=== PATIENT | female | born 1980 | race Caucasian/White ===

== ENCOUNTER 2016-06-09 09:19 | Emergency (ER) | payer OTHER, SELFPAY ==
[~2016-06-09] VITALS: Ht 152.4 cm; Wt 81.6 kg
[~2016-06-09 09:19] MED LIST: ALPRPOW4 PO; AMBI10TA PO; AMBI5TAB PO; AUGM875T27 PO; AVEL1TAB PO; AZIT250T3 PO; BACITAB3 PO; BUSP10TA PO; CALDESENE TOP; CLON1TAB PO; DELTASONE PO; DIAZ5TAB PO; DOXE25CA PO; DRISDOL PO; DULO30CA PO; ESTR625TA PO; FLUO20CA8 PO; FLUO20CA9 PO; FLUO40CA PO; FLUOXETINE PO; KEFL500C7 PO; KLON0.5T PO; KLON1TAB PO; LEVA750T PO; LEVO137T2 PO; LEVO150T7 PO; LEVOTHYROXINE PO; LITH45TASA PO; METH-107 PO; MINI2CAP PO; PERC5TAB6 PO; PRAZ1CAP PO; PRAZOSIN PO; PRED5TA PO; PREM0.45 PO; PROT1TAB2 PO; PROZ10CA7 PO; PROZ20CA11 PO; PROZ40CA PO; QUET1TAB8 PO; SERO50TA PO; SYNT150T PO; TRAZ50TA4 PO; TRAZO50TA PO; TYLE325T5 PO; VIST25CA PO; XANA0.5T PO; XANA1TAB2 PO; ZITH500T PO; ZOFR20TA PO; ZOFR4TAB3 PO; ZOLO50TA PO; ZYPR7.5T10 PO; [UNRECOGNIZED DRUG - OTHER] PO; [UNRECOGNIZED DRUG - OTHER] PO
[2016-06-09] MEDS ORDERED: ALPRAZolam 0.25 MG TAB PO ONE (09:45)
--- NOTE | 2016-06-09 11:03 | REP ---
CT Head without contrast HISTORY: Trauma COMPARISON: 11/11/2015 There is no intraparenchymal hemorrhage, acute infarct, mass or midline shift. The ventricular system is normal in appearance. There is no extra cerebral collection. There is no fracture. The visualized sinuses are clear. IMPRESSION: There is no intracranial lesion. Signed by Jaiden Guidry MD 06/09/2016 10:54 A
--- NOTE | 2016-06-09 11:07 | REP ---
CT cervical spine without contrast HISTORY: Trauma COMPARISON: 11/13/2014 There is no acute fracture or subluxation. There is no definite disc bulge or herniation. The spinal canal and neural foramina are patent. The intervertebral discs and vertebral bodies are normal in height. IMPRESSION: There is no acute fracture or subluxation. Signed by Jaiden Guidry MD 06/09/2016 10:58 A
[2016-06-09] MEDS ORDERED: PERCOCET 5MG/325MG TAB PO ONE (11:15)
--- NOTE | 2016-06-09 11:15 | REP ---
Right shoulder series: Three views. History: Trauma. Findings: The right glenohumeral and acromioclavicular joints are normally aligned. There is no evidence of fracture or subluxation. Periarticular soft tissues are unremarkable. No change when compared with the August 12, 2014 prior radiographic study of the humerus. Impression: No fracture or other traumatic abnormality noted. Signed by Corby Jones MD 06/09/2016 03:19 P
--- NOTE | 2016-06-09 11:18 | REP ---
Right hand series: Four views. History: Trauma. Findings: Four views right hand show overall normal mineralization. Bones, joints, and soft tissues are otherwise unremarkable. No fracture or subluxation is seen. Impression: No fracture noted. Signed by Corby Jones MD 06/09/2016 03:19 P
--- NOTE | 2016-06-09 11:19 | REP ---
Right TIB-fib series: Four views. History: Trauma. Comparison study November 11, 2015. Findings: There is a stable benign appearing low density lesion in the proximal fibula in the janelle metaphyseal zone measuring approximately 2.3 cm in greatest diameter. This is felt to be unchanged from November 11, 2015. Bones, joints, and soft tissues are otherwise radiographically unremarkable. No traumatic abnormality is seen. Impression: 2 cm stable radiolucency in the proximal fibula unchanged from November 11, 2015. No traumatic abnormality seen. Signed by Corby Jones MD 06/09/2016 03:20 P
[2016-06-09 13:36] VITALS: BP 120/80
[2016-06-09 13:38] VITALS: O2SAT 95
== END 2016-06-09 13:40 | disposition home or self-care (01) ==
LOC: M ED 13:09
DX: S60.221A Contusion of right hand, initial encounter (principal); S00.93XA Contusion of unspecified part of head, initial encounter; S80.11XA Contusion of right lower leg, initial encounter; W10.8XXA Fall (on) (from) other stairs and steps, initial encounter; Y92.89 Other specified places as the place of occurrence of the external cause; Y93.01 Activity, walking, marching and hiking; Y99.9 Unspecified external cause status

== ENCOUNTER 2016-10-20 09:03 | Emergency (ER) | payer OTHER ==
[~2016-10-20] VITALS: Ht 149.9 cm; Wt 90.9 kg
[~2016-10-20 09:03] MED LIST changes: -AUGM875T27 PO; +AUGM875T28 PO; -AVEL1TAB PO; +AVEL1TAB3 PO; +AZIT-12 PO; -AZIT250T3 PO; +BACITAB PO; -BACITAB3 PO; +FLUO20CA19 PO; -FLUO20CA9 PO; +KEFL500C17 PO; -KEFL500C7 PO; -LEVA750T PO; +LEVA750T7 PO; -METH-107 PO; +METH1TAB40 PO; +PERC5TAB12 PO; -PERC5TAB6 PO; +TRAZ50TA11 PO; -TRAZ50TA4 PO; +ZYPR1TAB2 PO; -ZYPR7.5T10 PO
[2016-10-20] MEDS ORDERED: VITA-122 (09:17)
[2016-10-20] MEDS ORDERED: SYNT75TA (09:17)
[2016-10-20] MEDS ORDERED: CLON0.5T (09:17)
[2016-10-20] MEDS ORDERED: CLON0.2T (09:17)
[2016-10-20] MEDS ORDERED: ARMO1TAB (09:17)
[2016-10-20] MEDS ORDERED: TRAZ-136 (09:17)
[2016-10-20] MEDS ORDERED: LAMO100T (09:17)
[2016-10-20] MEDS ORDERED: IPRATROPIUM 0.5MG/ALBUTEROL 2.5MG INH SOL UD 3ML (DUONEB)(J7620) NEB ONE (09:45)
[2016-10-20 10:18] LABS: BASO # 0.1 K/mm3 (0.0-0.2); BASO % 0.8 % (0.0-1.0); EOS # 0.2 K/mm3 (0.0-0.50); EOS % 2.9 % (0.0-3.0); LARGE UNSTAINED CELL # 0.1 K/mm3 (0.0-0.4); LARGE UNSTAINED CELL % 1.6 % (0.0-4.0); LYMPH % 34.7 % (24.0-44.0); MEAN CORPUSCULAR HGB CONC 32.4 g/dl (32.0-36.5); MEAN CORPUSCULAR VOLUME 89.4 fl (80.0-96.0); MONO # 0.3 K/mm3 (0.0-0.8); MONO % 4.2 % (0.0-5.0); NEUTROPHILS # 4.6 K/mm3 (1.8-7.7); NEUTROPHILS % 55.9 % (36.0-66.0); PLATELET COUNT, AUTOMATED 322 k/mm3 (150-450); RED CELL DISTRIBUTION WIDTH 13.4 % (11.5-14.5); WHITE BLOOD COUNT 8.2 K/mm3 (4.0-10.0)
[2016-10-20 10:25] LABS: ALBUMIN/GLOBULIN RATIO 1.11 (1.00-1.93); ALKALINE PHOSPHATASE 86 U/L (45-117); ALT/SGPT 37 U/L (12-78); ANION GAP 10 MEQ/L (8-16); AST/SGOT 15 U/L (15-37); BILIRUBIN,TOTAL 0.2 MG/DL (0.2-1.0); BLOOD UREA NITROGEN 4 MG/DL (7-18); CALCIUM LEVEL 8.9 MG/DL (8.5-10.1); CARBON DIOXIDE LEVEL 24 MEQ/L (21-32); CHLORIDE LEVEL 107 MEQ/L (98-107); GLOMERULAR FILTRATION RATE > 60.0 (>60); GLUCOSE, FASTING 101 MG/DL (70-105); POTASSIUM SERUM 3.7 MEQ/L (3.5-5.1); SODIUM LEVEL 141 MEQ/L (136-145); TOTAL PROTEIN 7.6 GM/DL (6.4-8.2)
--- NOTE | 2016-10-20 10:49 | REP ---
Chest x-ray: Two views. History: Shortness of breath and chest pain. Comparison study: February 05, 2015. Findings: The lungs are well inflated and clear. Pleural angles are sharp. Cardiomediastinal silhouette is unremarkable. Pulmonary vasculature is not increased. No bony abnormality is seen. There are surgical clips in the right upper quadrant of the abdomen and in the left axillary region as before. Impression: No active disease. Signed by Corby Jones MD 10/20/2016 04:02 P
[2016-10-20 11:06] VITALS: BP 110/70
[2016-10-20] MEDS ORDERED: AUGM875T28 PO (11:07)
[2016-10-20] MEDS ORDERED: CLAR1TAB2 PO (11:07)
[2016-10-20] MEDS ORDERED: PRED20TA PO (11:07)
[2016-10-20] MEDS ORDERED: ALBU17IN INH (11:07)
[2016-10-20] MEDS ORDERED: predniSONE 20 MG TAB PO ONE (11:15)
[2016-10-20] MEDS ORDERED: AUGMENTIN 875 MG TAB PO ONE (11:15)
--- NOTE | 2016-10-20 13:44 | ECGEPIP ---
Stationary ECG Study [facility] - ED Test Date: 2016-10-20 Pat Name: SHARA CLARK Department: Room: - Gender: F [employer] Professor: lauryn : 1980 Requested By: Oumou Holley PA-C Order Number: [id number] Reading MD: Elizabeth Zavala Measurements Intervals [place] Rate: 92 P: 21 MT: 121 QRS: 50 QRSD: 85 T: 28 QT: 360 QTc: 446 Interpretive Statements SINUS RHYTHM NSTTW ABNORMALITY SIMILAR 01/29/15 Electronically Signed On 10-20-2016 13:43:57 EDT by Elizabeth Zavala
== END 2016-10-20 11:18 | disposition home or self-care (01) ==
LOC: M ED 09:03
DX: J01.90 Acute sinusitis, unspecified (principal); J20.9 Acute bronchitis, unspecified; G43.909 Migraine, unspecified, not intractable, without status migrainosus; M26.609 Unspecified temporomandibular joint disorder, unspecified side; N93.9 Abnormal uterine and vaginal bleeding, unspecified; N83.299 Other ovarian cyst, unspecified side; E03.9 Hypothyroidism, unspecified; F41.9 Anxiety disorder, unspecified; M54.9 Dorsalgia, unspecified; F32.9 Major depressive disorder, single episode, unspecified; F43.10 Post-traumatic stress disorder, unspecified; F44.81 Dissociative identity disorder; Z79.899 Other long term (current) drug therapy; Z88.6 Allergy status to analgesic agent; Z88.8 Allergy status to other drugs, medicaments and biological substances

== ENCOUNTER 2016-11-16 16:48 | Emergency (ER) | payer OTHER ==
[~2016-11-16] VITALS: Ht 152.4 cm; Wt 95.5 kg
[~2016-11-16 16:48] MED LIST changes: +ALBU17IN INH; +ARMO1TAB; +CLAR1TAB2 PO; +CLON0.2T; +CLON0.5T; +LAMO100T; +PRED20TA PO; +SYNT75TA; +TRAZ-136; +VITA-122
[2016-11-16] MEDS ORDERED: NS 1,000 ML IV ONE (17:45)
[2016-11-16 17:57] LABS: BASO # 0.1 K/mm3 (0.0-0.2); EOS # 0.2 K/mm3 (0.0-0.50); EOS % 2.7 % (0.0-3.0); LARGE UNSTAINED CELL # 0.2 K/mm3 (0.0-0.4); LYMPH # 3.1 K/mm3 (1.5-4.5); MEAN CORPUSCULAR HEMOGLOBIN 29.2 pg (27.0-33.0); MEAN CORPUSCULAR VOLUME 91.3 fl (80.0-96.0); MONO # 0.4 K/mm3 (0.0-0.8); MONO % 4.9 % (0.0-5.0); NEUTROPHILS % 56.4 % (36.0-66.0); PLATELET COUNT, AUTOMATED 363 k/mm3 (150-450); RED CELL DISTRIBUTION WIDTH 13.9 % (11.5-14.5); WHITE BLOOD COUNT 8.8 K/mm3 (4.0-10.0)
[2016-11-16 17:59] LABS: CONTROL LINE HCG INT CTR LINE PRESENT
[2016-11-16 18:10] LABS: ALBUMIN 3.6 GM/DL (3.2-5.2); ALBUMIN/GLOBULIN RATIO 1.16 (1.00-1.93); ALKALINE PHOSPHATASE 74 U/L (45-117); ALT/SGPT 31 U/L (12-78); ANION GAP 15 MEQ/L (8-16); AST/SGOT 14 U/L (15-37); BILIRUBIN,DIRECT < 0.1 MG/DL (0.0-0.2); BILIRUBIN,TOTAL 0.3 MG/DL (0.2-1.0); BLOOD UREA NITROGEN 9 MG/DL (7-18); CALCIUM LEVEL 8.5 MG/DL (8.5-10.1); CARBON DIOXIDE LEVEL 20 MEQ/L (21-32); CHLORIDE LEVEL 108 MEQ/L (98-107); CREATININE FOR GFR 0.66 MG/DL (0.55-1.02); GLOMERULAR FILTRATION RATE > 60.0 (>60); GLUCOSE, FASTING 118 MG/DL (70-105); POTASSIUM SERUM 3.7 MEQ/L (3.5-5.1); SODIUM LEVEL 143 MEQ/L (136-145); TOTAL PROTEIN 6.7 GM/DL (6.4-8.2)
[2016-11-16] MEDS ORDERED: METOCLOPRAMIDE INJ 10MG/2ML VIAL (J2765) IV ONE (20:00)
[2016-11-16 20:08] LABS: MICROSCOPIC INDICATED? MAN YES (NO)
[2016-11-16 20:19] LABS: MICROSCOPIC EXAM PERFORMED
[2016-11-16 20:20] LABS: BACTERIA, URINE SMALL AMOUNT; HYALINE CAST, URINE NONE SEEN /lpf (0-1); RBC, URINE 0-1 /hpf (0-3); SQUAMOUS EPITHELIAL CELL URINE MOD AMOUNT /hpf (SMALL AMT)
[2016-11-16 20:31] LABS: METHADONE URINE NEGATIVE (NEGATIVE)
--- NOTE | 2016-11-16 20:41 | ECGEPIP ---
Stationary ECG Study [facility] - ED Test Date: 2016-11-16 Pat Name: SHARA CLARK Department: Room: - Gender: F [employer]: JUS : 1980 Requested By: EUFEMIA LAGOS Order Number: [id number] Reading MD: Elizabeth Zavala Measurements Intervals [place] Rate: 90 P: 15 LA: 123 QRS: 29 QRSD: 90 T: 4 QT: 377 QTc: 462 Interpretive Statements SINUS RHYTHM NSTTW ABNORMALITY SIMILAR 10/20/16 Electronically Signed On 11-16-2016 20:40:50 EDT by Elizabeth Zavala
[2016-11-16 21:08] VITALS: BP 115/66
== END 2016-11-16 22:33 | disposition home or self-care (01) ==
LOC: M ED 16:48
DX: R00.2 Palpitations (principal); E03.9 Hypothyroidism, unspecified; R94.31 Abnormal electrocardiogram [ECG] [EKG]; G43.909 Migraine, unspecified, not intractable, without status migrainosus; M32.9 Systemic lupus erythematosus, unspecified; Z82.49 Family history of ischemic heart disease and other diseases of the circulatory system; Z79.899 Other long term (current) drug therapy; Z88.6 Allergy status to analgesic agent; Z91.89 Other specified personal risk factors, not elsewhere classified; Z88.8 Allergy status to other drugs, medicaments and biological substances
CPT/HCPCS: 36415; 51701; 80048; 80076; 80307; 81000; 82550; 82553; 84443; 84703; 85025; 85379; 87086; 93005; 93041; 94760; 96374; 99285; G0480; J2765

== ENCOUNTER 2018-08-01 08:55 | Emergency (ER) | payer OTHER ==
[~2018-08-01] VITALS: Ht 149.9 cm; Wt 85.0 kg
[~2018-08-01 08:55] MED LIST changes: -CLON0.5T; +CLON0.5T8; -CLON1TAB PO; +CLON1TAB8 PO; -DULO30CA PO; +DULO30CA9 PO; -TRAZ-136; +TRAZ-160 PO; +TRAZ-163; +TRAZ1TAB6 PO; -TRAZ50TA11 PO; -TRAZO50TA PO; -ZOFR20TA PO; +ZOFR4TAB14 PO; +ZOFR4TAB16 PO; -ZOFR4TAB3 PO
[2018-08-01] MEDS ORDERED: LYRI75CA (09:08)
[2018-08-01] MEDS ORDERED: ROZE8TAB16 (09:08)
[2018-08-01] MEDS ORDERED: ESTR1TAB (09:08)
[2018-08-01] MEDS ORDERED: CLON1TAB8 (09:08)
[2018-08-01] MEDS ORDERED: CYMB60CA3 (09:08)
[2018-08-01] MEDS ORDERED: REXU1TAB3 (09:08)
[2018-08-01] MEDS ORDERED: ONDANSETRON 4 MG ORAL DISINTEGRATING TAB (Q0162 PER 1MG) PO ONE (09:30)
[2018-08-01 09:55] LABS: BASO # 0.1 10^3/uL (0.0-0.2); BASO % 0.7 % (0.0-1.0); EOS # 0.3 10^3/uL (0.0-0.50); EOS % 2.3 % (0.0-3.0); HEMATOCRIT 41.1 % (36.0-47.0); HEMOGLOBIN 13.5 g/dl (12.0-15.5); LYMPH # 4.4 10^3/uL (1.5-4.5); LYMPH % 32.8 % (24.0-44.0); MEAN CORPUSCULAR HEMOGLOBIN 29.8 pg (27.0-33.0); MEAN CORPUSCULAR HGB CONC 32.8 g/dl (32.0-36.5); MEAN CORPUSCULAR VOLUME 90.7 fl (80.0-96.0); MONO # 0.9 10^3/uL (0.0-0.8); MONO % 6.9 % (0.0-5.0); NEUTROPHILS # 7.7 10^3/uL (1.8-7.7); PLATELET COUNT, AUTOMATED 423 10^3/uL (150-450); RED BLOOD COUNT 4.53 10^6/uL (4.00-5.40); WHITE BLOOD COUNT 13.5 10^3/uL (4.0-10.0)
[2018-08-01 10:19] LABS: BLOOD UREA NITROGEN 7 MG/DL (7-18); CARBON DIOXIDE LEVEL 27 MEQ/L (21-32); CHLORIDE LEVEL 108 MEQ/L (98-107); CREATININE FOR GFR 0.58 MG/DL (0.55-1.30); GLOMERULAR FILTRATION RATE > 60.0 (>60); GLUCOSE, FASTING 100 MG/DL (70-100); MAGNESIUM LEVEL 2.1 MG/DL (1.8-2.4); POTASSIUM SERUM 3.6 MEQ/L (3.5-5.1); SODIUM LEVEL 142 MEQ/L (136-145)
[2018-08-01 11:00] VITALS: BP 104/73
== END 2018-08-01 11:02 | disposition home or self-care (01) ==
LOC: M ED 08:55
DX: R45.1 Restlessness and agitation (principal); F32.9 Major depressive disorder, single episode, unspecified; F41.8 Other specified anxiety disorders; F43.12 Post-traumatic stress disorder, chronic; E03.9 Hypothyroidism, unspecified; K21.9 Gastro-esophageal reflux disease without esophagitis; N83.209 Unspecified ovarian cyst, unspecified side; Z79.899 Other long term (current) drug therapy; Z88.6 Allergy status to analgesic agent; Z88.8 Allergy status to other drugs, medicaments and biological substances; Z90.49 Acquired absence of other specified parts of digestive tract; Z90.710 Acquired absence of both cervix and uterus
CPT/HCPCS: 80048; 83735; 85025; 99284; Q0162

== ENCOUNTER 2018-08-23 07:35 | Emergency (ER) | payer OTHER ==
[~2018-08-23] VITALS: Ht 149.9 cm; Wt 87.7 kg
[~2018-08-23 07:35] MED LIST changes: +CLON1TAB8; +CYMB60CA3; +ESTR1TAB; +LYRI75CA; +REXU1TAB3; +ROZE8TAB16
[2018-08-23 08:29] LABS: BASO # 0.1 10^3/uL (0.0-0.2); BASO % 0.7 % (0.0-1.0); EOS # 0.3 10^3/uL (0.0-0.50); EOS % 2.6 % (0.0-3.0); HEMATOCRIT 42.2 % (36.0-47.0); HEMOGLOBIN 13.6 g/dl (12.0-15.5); LYMPH # 3.9 10^3/uL (1.5-4.5); LYMPH % 35.1 % (24.0-44.0); MEAN CORPUSCULAR HEMOGLOBIN 29.6 pg (27.0-33.0); MEAN CORPUSCULAR HGB CONC 32.2 g/dl (32.0-36.5); MEAN CORPUSCULAR VOLUME 91.7 fl (80.0-96.0); MONO # 0.7 10^3/uL (0.0-0.8); MONO % 6.3 % (0.0-5.0); PLATELET COUNT, AUTOMATED 390 10^3/uL (150-450)
[2018-08-23 08:32] LABS: APPEARANCE, URINE CLEAR (CLEAR); BACTERIA, URINE AUTO 2+ (NEGATIVE); BILIRUBIN, URINE AUTO NEGATIVE (NEGATIVE); BLOOD, URINE BLOOD NEGATIVE (NEGATIVE); COLOR, URINE YELLOW (YELLOW); GLUCOSE, URINE (UA) AUTO NEGATIVE (NEGATIVE); KETONE, URINE AUTO NEGATIVE (NEGATIVE); LEUKOCYTE ESTERASE, URINE AUTO NEGATIVE (NEGATIVE); NITRITE, URINE AUTO NEGATIVE (NEGATIVE); PROTEIN, URINE AUTO NEGATIVE (NEGATIVE); RBC, URINE AUTO 2 /HPF (0-3); SPECIFIC GRAVITY URINE AUTO 1.014 (1.002-1.035); SQUAMOUS EPITHELIAL CELL UR AU 1 /HPF (0-6); UROBILINOGEN, URINE AUTO 0.2 mg/dL (0.0-2.0); WBC, URINE AUTO 1 /HPF (0-3)
--- NOTE | 2018-08-23 08:46 | REP ---
Clinical: Right lower quadrant and right-sided flank pain. Technique: Axial noncontrast images from the lung bases to the pubic symphysis with coronal and sagittal re-formations. Findings: Lung bases are clear. Visualized heart and pericardium normal. Liver, spleen, pancreas, bilateral adrenal glands and kidneys are normal. No perinephric stranding, hydroureteronephrosis, intrarenal or obstructing ureteral calculi identified. Evidence of prior cholecystectomy and hysterectomy. The enteric system is without obstruction or acute inflammatory process. Normal terminal ileum and appendix are identified in the right lower quadrant. Pelvis demonstrates normal bladder and scattered sigmoid diverticula without acute diverticulitis. Evidence of prior hysterectomy noted. No ascites. No free air. No adenopathy. Abdominal aorta without aneurysm. Impression: No acute abdominopelvic pathology appreciated. Prior cholecystectomy and hysterectomy. Electronically Signed by Bentley Portillo MD 08/23/2018 08:37 A
[2018-08-23 08:52] LABS: ALBUMIN 4.1 GM/DL (3.2-5.2); ALT/SGPT 27 U/L (12-78); BILIRUBIN,DIRECT < 0.1 MG/DL (0.0-0.2); BILIRUBIN,TOTAL 0.3 MG/DL (0.2-1.0); BLOOD UREA NITROGEN 7 MG/DL (7-18); CALCIUM LEVEL 9.9 MG/DL (8.5-10.1); CARBON DIOXIDE LEVEL 27 MEQ/L (21-32); CHLORIDE LEVEL 104 MEQ/L (98-107); CREATININE FOR GFR 0.68 MG/DL (0.55-1.30); GLOMERULAR FILTRATION RATE > 60.0 (>60); GLUCOSE, FASTING 90 MG/DL (70-100); POTASSIUM SERUM 4.1 MEQ/L (3.5-5.1); SODIUM LEVEL 140 MEQ/L (136-145); TOTAL PROTEIN 7.4 GM/DL (6.4-8.2)
[2018-08-23 09:47] VITALS: BP 119/74
== END 2018-08-23 10:08 | disposition home or self-care (01) ==
LOC: M ED 07:35
DX: R10.31 Right lower quadrant pain (principal); Z90.49 Acquired absence of other specified parts of digestive tract; Z90.710 Acquired absence of both cervix and uterus; Z88.6 Allergy status to analgesic agent; Z88.8 Allergy status to other drugs, medicaments and biological substances; Z79.3 Long term (current) use of hormonal contraceptives; Z79.899 Other long term (current) drug therapy

== ENCOUNTER 2019-09-11 12:39 | Emergency (ER) | payer OTHER ==
[~2019-09-11] VITALS: Ht 152.4 cm; Wt 84.1 kg
[~2019-09-11 12:39] MED LIST changes: +CLON0.5T2; -CLON0.5T8; -FLUO20CA19 PO; +FLUO20CA20 PO; +FLUO20CA22 PO; -FLUO20CA8 PO; -LAMO100T; +LAMO100T3; +QUET100T2 PO; -QUET1TAB8 PO; -TRAZ-160 PO; -TRAZ-163; +TRAZ-252 PO; +TRAZ-257
[2019-09-11] MEDS ORDERED: KETOROLAC 30 MG/ML 1ML VIAL IV ONE (13:30)
[2019-09-11] MEDS ORDERED: METOCLOPRAMIDE INJ 10MG/2ML VIAL (J2765 PER 1) IV ONE (13:30)
[2019-09-11] MEDS ORDERED: NS 1,000 ML IV ONE (13:30)
[2019-09-11 14:00] LABS: BASO # 0.1 10^3/uL (0.0-0.2); EOS # 0.2 10^3/uL (0.0-0.5); EOS % 2.5 % (0.0-3.0); HEMATOCRIT 41.2 % (36.0-47.0); HEMOGLOBIN 13.1 g/dl (12.0-15.5); LYMPH # 2.4 10^3/uL (1.5-5.0); LYMPH % 29.8 % (24.0-44.0); MEAN CORPUSCULAR HEMOGLOBIN 29.4 pg (27.0-33.0); MEAN CORPUSCULAR HGB CONC 31.8 g/dl (32.0-36.5); MEAN CORPUSCULAR VOLUME 92.6 fl (80.0-96.0); MONO # 0.5 10^3/uL (0.0-0.8); MONO % 6.2 % (0.0-5.0); NEUTROPHILS # 4.7 10^3/uL (1.5-8.5); NEUTROPHILS % 60.1 % (36.0-66.0); PLATELET COUNT, AUTOMATED 282 10^3/uL (150-450); RED BLOOD COUNT 4.45 10^6/uL (4.00-5.40); WHITE BLOOD COUNT 7.9 10^3/uL (4.0-10.0)
[2019-09-11] MEDS ORDERED: ZOLM5TAB20 PO (14:05)
[2019-09-11] MEDS ORDERED: ONDA4TAB6 (14:05)
[2019-09-11] MEDS ORDERED: HYDR200T3 (14:05)
[2019-09-11] MEDS ORDERED: PREG100C (14:05)
[2019-09-11 14:36] LABS: BLOOD UREA NITROGEN 9 MG/DL (7-18); CALCIUM LEVEL 9.2 MG/DL (8.5-10.1); CARBON DIOXIDE LEVEL 30 MEQ/L (21-32); CHLORIDE LEVEL 104 MEQ/L (98-107); CREATININE FOR GFR 0.72 MG/DL (0.55-1.30); FREE T4 0.65 NG/DL (0.76-1.46); GLOMERULAR FILTRATION RATE > 60.0 (>58); GLUCOSE, FASTING 85 MG/DL (70-100); MAGNESIUM LEVEL 2.1 MG/DL (1.8-2.4); POTASSIUM SERUM 4.1 MEQ/L (3.5-5.1); SODIUM LEVEL 137 MEQ/L (136-145)
[2019-09-11 14:47] LABS: AMPHETAMINES LEVEL URINE NEGATIVE (NEGATIVE); BARBITURATES URINE NEGATIVE (NEGATIVE); BENZODIAZEPINES URINE NEGATIVE (NEGATIVE); CANNABINOIDS URINE POSITIVE (NEGATIVE); COCAINE METABOLITE URINE NEGATIVE (NEGATIVE); METHADONE URINE NEGATIVE (NEGATIVE); OPIATES URINE NEGATIVE (NEGATIVE); PHENCYCLIDINE URINE NEGATIVE (NEGATIVE)
[2019-09-11 15:41] VITALS: BP 108/63
--- NOTE | 2019-09-12 00:11 | REP ---
CT BRAIN, 09/11/2019: INDICATION: Headache. TECHNIQUE: Unenhanced axial CT images of the brain were obtained from skull base to vertex with coronal reconstructions provided. COMPARISON: 06/09/2016 FINDINGS: There is no acute intracranial hemorrhage, acute cortical infarction, mass effect, or hydrocephalus. The visualized paranasal sinuses and mastoid air cells are essentially clear. IMPRESSION: No acute intracranial process. MTDD
== END 2019-09-11 15:47 | disposition home or self-care (01) ==
LOC: M ED 12:39
DX: G43.909 Migraine, unspecified, not intractable, without status migrainosus (principal); M79.7 Fibromyalgia; M32.9 Systemic lupus erythematosus, unspecified; K21.9 Gastro-esophageal reflux disease without esophagitis; F12.90 Cannabis use, unspecified, uncomplicated; F32.9 Major depressive disorder, single episode, unspecified; F41.9 Anxiety disorder, unspecified; F43.10 Post-traumatic stress disorder, unspecified; E03.9 Hypothyroidism, unspecified; Z79.899 Other long term (current) drug therapy; Z88.6 Allergy status to analgesic agent; Z88.8 Allergy status to other drugs, medicaments and biological substances
CPT/HCPCS: 70450; 80048; 80307; 81001; 83735; 84439; 84443; 85025; 96361; 96374; 99284; J1885; J2765

== ENCOUNTER → 2020-04-15 | Outpatient (REF) | payer OTHER ==
[~2020-04-15] MED LIST changes: +HYDR200T3; +ONDA4TAB6; +PREG100C; +ZOLM5TAB20 PO
== END ==
LOC: M LAB REF 18:00
PROVIDERS: ATTEND Physician Assistant Medical
DX: Z11.59 Encounter for screening for other viral diseases (principal)